=== PATIENT | female | born 1985 | race Caucasian/White ===

== ENCOUNTER 2018-09-09 12:20 | Inpatient (IN) | payer OTHER ==
[2018-09-09] MEDS: LACTATED RINGER'S 1000 ML IV (13:42)
[2018-09-09 14:08] LABS: HEMATOCRIT 35.9 % (36.0-47.0); HEMOGLOBIN 11.7 g/dl (12.0-15.5); MEAN CORPUSCULAR HEMOGLOBIN 28.4 pg (27.0-33.0); MEAN CORPUSCULAR HGB CONC 32.6 g/dl (32.0-36.5); MEAN CORPUSCULAR VOLUME 87.1 fl (80.0-96.0); PLATELET COUNT, AUTOMATED 235 10^3/uL (150-450); RED BLOOD COUNT 4.12 10^6/uL (4.00-5.40); RED CELL DISTRIBUTION WIDTH 13.6 % (11.5-14.5)
[2018-09-09] MEDS ORDERED: FENTANYL 2MCG/ML ROPIVACAINE 0.2% IN 0.9% NACL 200ML IVBAG As Ordered (14:44)
[2018-09-09] MEDS: FENTANYL/ROPIVACAINE/NACL BAG 200 ML EPIDURAL (15:22)
[2018-09-09] MEDS: LR 1,000 ML IV (15:23)
[2018-09-09] MEDS ORDERED: REFRIGERATOR IV KEYS XX (16:15)
[2018-09-09] MEDS ORDERED: ePHEDrine SULFATE 25 MG/5 ML(5MG/ML) SYRINGE IV (16:15)
[2018-09-09] MEDS ORDERED: LACTATED RINGER'S 1000 ML IV (16:15)
[2018-09-09] MEDS ORDERED: EPIDURAL/PCA KEYS XX (16:15)
[2018-09-09] MEDS ORDERED: NALOXONE INJ 0.4 MG/1 ML VIAL (J2310) IV (16:15)
[2018-09-09] MEDS ORDERED: EPIDURAL COMMENT XX (16:15)
[2018-09-09] MEDS ORDERED: diphenhydrAMINE INJ 50MG/ML VIAL (J1200) IV (16:15)
[2018-09-09] MEDS ORDERED: ONDANSETRON 4MG/2ML VIAL (J2405) IV (16:15)
[2018-09-09] MEDS ORDERED: OXYTOCIN 30 UNITS IN 0.9% NaCl 500ML IV BAG (J2590) As Ordered (17:13)
[2018-09-09] MEDS: OXYTOCIN DRIP 30 UNITS in APPROPRIATE DILUENT 1 EA IV (18:56)
[2018-09-09] MEDS ORDERED: METOCLOPRAMIDE INJ 10MG/2ML VIAL (J2765) IV (19:00)
[2018-09-09] MEDS ORDERED: DIBUCAINE 1% OINTMENT 30GM TOP (19:00)
[2018-09-10] MEDS: ACETAMINOPHEN TAB 650MG DOSE (2X325MG) PO ×2 (01:51→08:39)
[2018-09-10] MEDS: PRENATAL VITAMINS CHEWABLE TABLET PO (08:39)
[2018-09-10] MEDS: DOCUSATE SODIUM 100 MG CAP PO ×3 (08:39→21:41)
[2018-09-10] MEDS: IBUPROFEN 800 MG TAB PO (11:44)
[2018-09-11] MEDS: IBUPROFEN 800 MG TAB PO (05:28)
[2018-09-11] MEDS: RHOGAM 300 MCG (1500 IU) INJ (J2790) IM (07:17)
[2018-09-11] MEDS: MEASLES,MUMPS,RUBELLA VACCINE INJ (MMR-II) (90707) SC (07:17)
[2018-09-11] MEDS: PRENATAL VITAMINS CHEWABLE TABLET PO (07:34)
[2018-09-11] MEDS: DOCUSATE SODIUM 100 MG CAP PO (07:35)
== END 2018-09-11 10:26 | disposition home or self-care (01) | DRG 560 ==
LOC: M LDO 12:20 → M LDI 13:19 → M OBS 20:27
PROVIDERS: Obstetrics & Gynecology
PROC: 10E0XZZ Delivery of Products of Conception, External Approach (ICD-10-PCS; principal; 2018-09-09)
PROC: 0KQM0ZZ Repair Perineum Muscle, Open Approach (ICD-10-PCS; 2018-09-09)
PROC: 0UBMXZX Excision of Vulva, External Approach, Diagnostic (ICD-10-PCS; 2018-09-09)
DX: O34.211 Maternal care for low transverse scar from previous cesarean delivery (principal); Z37.0 Single live birth; Z3A.39 39 weeks gestation of pregnancy; O32.6XX0 Maternal care for compound presentation, not applicable or unspecified; O70.1 Second degree perineal laceration during delivery